=== PATIENT | female | born 1955 | race Caucasian/White ===

== ENCOUNTER 2019-10-18 00:51 | Emergency (ER) | payer OTHER, MEDICAID ==
[~2019-10-18] VITALS: Ht 152.4 cm; Wt 130.9 kg
[2019-10-18 01:02] VITALS: BP 147/64
--- NOTE | 2019-10-18 01:45 | RAD ---
Right hip 2 views with one view pelvis. HISTORY: Pelvic and right hip pain after a fall. Supine views were taken of the pelvis. There is no acute pelvic fracture. Left hip appears unremarkable. AP and lateral views were taken of the right hip. There is no fracture or acute osseous abnormality. IMPRESSION: 1. No pelvic fracture noted. 2. No right hip fracture noted. Electronically signed by: Cricket Ribeiro MD (10/18/2019 1:43 AM) [id number]
--- NOTE | 2019-10-18 01:47 | PHYS DOC ---
Past History Past Medical History: Arthritis, CAD, CHF, COPD, Diabetes, High Cholesterol, Pneumonia Additional Past Medical Histor: heart palpitations, Past Surgical History: Cholecystectomy, Hysterectomy Additional Past Surgical Histo: stents x5, gastric sleeve Alcohol Use: None Adult General Chief Complaint Chief Complaint: MECHANICAL FALL HPI HPI Patient is a [age] year old [sex] who presents with [] Review of Systems Review of Systems Constitutional: Denies fever or chills Eyes: Denies redness or eye pain HENT: Denies nasal congestion or sore throat Respiratory: Denies cough or shortness of breath Cardiovascular: Denies chest pain or palpitations GI: Denies abdominal pain, nausea, or vomiting : Denies dysuria or hematuria Musculoskeletal: Denies back pain or joint pain Integument: Denies rash or skin lesions Neurologic: Denies headache, focal weakness or sensory changes Complete systems were reviewed and found to be within normal limits, except as documented in this note. Physical Exam Physical Exam Constitutional: Well developed, well nourished, no acute distress, non-toxic appearance HENT: Normocephalic, atraumatic, oropharynx moist Eyes: PERRL, EOMI, conjunctiva normal, no discharge Neck: Normal range of motion, no tenderness, supple Cardiovascular: Heart rate normal, regular rhythm Lungs & Thorax: Bilateral breath sounds clear to auscultation, no wheezing Abdomen: Soft, no tenderness Skin: Warm, dry, no erythema, no rash Back: No tenderness, no CVA tenderness Extremities: No tenderness, ROM intact, no edema Neurologic: Alert and oriented X 3, normal motor function, normal sensory function, no focal deficits noted Psychologic: Affect normal, judgment normal Current Patient Data Vital Signs Vital Signs Date Time Temp Pulse Resp B/P (MAP) Pulse Ox O2 Delivery O2 Flow Rate FiO2 10/18/19 01:02 97.6 66 18 147/64 (91) 99 Room Air EKG EKG [] Radiology/Procedures Radiology/Procedures [] Course & Med Decision Making Course & Med Decision Making Pertinent Labs and Imaging studies reviewed. (See chart for details) Patient stable for discharge with outpatient follow-up with PCP. Discussed findings and plan with patient and family, who acknowledge understanding and agreement. Dragon Disclaimer Dragon Disclaimer This electronic medical record was generated, in whole or in part, using a voice recognition dictation system. Departure Departure: Impression: Primary Impression: Fall Additional Impressions: Right wrist sprain Hip pain, right Disposition: 01 HOME, SELF-CARE Condition: STABLE Referrals: NON,STAFF (PCP) FAVIAN HILL MD Patient Instructions: Fall Prevention and Home Safety, [id number], Hip Pain, Wrist Pain, [id number], Wrist Splint, [id number] Additional Instructions: ICE area 20 min on and then leave off for next 20 min as needed for the next few days. Use over the counter Tylenol or Ibuprofen for pain. May take previously prescribed pain medications as needed. DO NOT take extra Tylenol with the Nor co- it has Tylenol in it already. Problem Qualifiers Primary Impression: Fall Encounter type: initial encounter Qualified Codes: W19.XXXA - Unspecified fall, initial encounter Additional Impressions: Right wrist sprain Encounter type: initial encounter Qualified Codes: S63.501A - Unspecified sprain of right wrist, initial encounter JAMEY PRIETO DO Oct 18, 2019 01:47
--- NOTE | 2019-10-18 01:48 | RAD ---
Right wrist 3 views. HISTORY: Pain after a fall. 3 views were taken of the right wrist. There is mild arthritis at the first carpal metacarpal joint. There is mild arthritis with joint space narrowing between the navicular and trapezium. The radius and ulna are superimposed on the lateral view. A subtle nondisplaced radial fracture is possible in the lateral view. Minimally oblique lateral images could be of benefit for better evaluation. A fracture is not definitively identified on the AP and oblique images. IMPRESSION: 1. Arthritis right wrist. 2. No definite wrist fracture but dorsal cortex of the distal radius not well seen on the lateral view. Electronically signed by: Cricket Ribeiro MD (10/18/2019 1:45 AM) [id number]
== END 2019-10-18 01:50 | disposition home or self-care (01) ==
LOC: ER 00:51
DX: S63.501A Unspecified sprain of right wrist, initial encounter (principal); M25.551 Pain in right hip; M19.90 Unspecified osteoarthritis, unspecified site; I25.10 Atherosclerotic heart disease of native coronary artery without angina pectoris; I50.9 Heart failure, unspecified; J44.9 Chronic obstructive pulmonary disease, unspecified; E11.9 Type 2 diabetes mellitus without complications; E78.00 Pure hypercholesterolemia, unspecified; W18.39XA Other fall on same level, initial encounter; Y93.89 Activity, other specified; Y92.89 Other specified places as the place of occurrence of the external cause; Y99.8 Other external cause status
CPT/HCPCS: 73110; 73502; 99284

== ENCOUNTER 2022-01-03 10:09 | Emergency (ER) | payer OTHER, MEDICAID ==
[~2022-01-03] VITALS: Ht 152.4 cm; Wt 130.9 kg
[2022-01-03 10:09] VITALS: BP 163/87
[2022-01-03] MEDS ORDERED: PRED-220 PO (10:35)
--- NOTE | 2022-01-03 10:35 | PHYS DOC ---
Past History Past Medical History: Arthritis, CAD, CHF, COPD, Diabetes, High Cholesterol, Pneumonia Additional Past Medical Histor: heart palpitations Past Surgical History: Cholecystectomy, Hysterectomy Additional Past Surgical Histo: stents x5, gastric sleeve Smoking: Non-smoker Alcohol Use: None Drug Use: None Adult General Chief Complaint Chief Complaint: SKIN RASH/ABSCESS HPI HPI Patient is a 66 year old female who presents with complaint of rash. She states that her symptoms started last night. She states that she has had similar symptoms when exposed to poison benja. She believes that she was exposed to poison benja yesterday at a family member's house. Notes that the rash started on both arms and has since spread to her chest and back. States that she has had history of severe allergic reaction to poison benja resulting in swelling around her eyes. Denies throat swelling or shortness of breath. She came to the emergency department requesting treatment to avoid developing more severe symptoms. Denies vomiting, fever, abdominal pain, chest pain, or diarrhea. Review of Systems Review of Systems Constitutional: Denies fever or chills [] Eyes: Denies change in visual acuity, redness, or eye pain [] HENT: Denies nasal congestion or sore throat [] Respiratory: Denies cough or shortness of breath [] Cardiovascular: Denies chest pain or edema [] GI: Denies abdominal pain, nausea, vomiting, bloody stools or diarrhea [] : Denies dysuria or hematuria [] Musculoskeletal: Denies back pain or joint pain [] Integument: Rash [] Neurologic: Denies headache, focal weakness or sensory changes [] All other systems were reviewed and found to be within normal limits, except as documented in this note. Allergies Allergies Allergies Coded Allergies Type Severity Reaction Last Updated Verified lemon Allergy Unknown 01/03/22 Yes Physical Exam Physical Exam Constitutional: Alert, afebrile, no acute distress. [] HENT: Normocephalic, atraumatic, bilateral external ears normal, oropharynx moist, no oral exudates, nose normal. [] Eyes: PERRLA, EOMI, conjunctiva normal, no discharge. [] Neck: Normal range of motion, no tenderness, supple, no stridor. [] Cardiovascular:Heart rate regular rhythm, no murmur [] Lungs & Thorax: Bilateral breath sounds clear to auscultation [] Abdomen: Bowel sounds normal, soft, no tenderness, no masses, no pulsatile masses. [] Skin: Warm, dry, diffuse maculopapular rash present on bilateral hands, extensor surfaces of forearms and posterior aspect of upper arms, trunk, and back. No facial involvement at this time. [] Back: No tenderness, no CVA tenderness. [] Extremities: No tenderness, no cyanosis, no clubbing, ROM intact, no edema. [] Neurologic: Alert and oriented X 3, normal motor function, normal sensory function, no focal deficits noted. [] Current Patient Data Vital Signs Vital Signs Date Time Temp Pulse Resp B/P (MAP) Pulse Ox O2 Delivery O2 Flow Rate FiO2 01/03/22 10:09 97.9 58 163/87 (112) 98 01/03/22 10:09 16 Room Air Lab Results Not performed EKG EKG Not performed Radiology/Procedures Radiology/Procedures Not performed [] Heart Score C/O Chest Pain: No Risk Factors: Risk Factors: DM, Current or recent (<one month) smoker, HTN, HLP, family history of CAD, obesity. Risk Scores: Risk Factors: DM, Current or recent (<one month) smoker, HTN, HLP, family history of CAD, obesity. Course & Med Decision Making Course & Med Decision Making Pertinent Labs and Imaging studies reviewed. (See chart for details) Patient ministered IM Solu-Medrol in the emergency department. Will continue on 5-day course of oral prednisone for outpatient treatment. Advise follow-up in 3 to 5 days with primary care provider for reevaluation if symptoms or not improving and return to the emergency department for any worsening symptoms. Patient voiced understanding and in agreement with treatment plan. [] Dragon Disclaimer Dragon Disclaimer This electronic medical record was generated, in whole or in part, using a voice recognition dictation system. Departure Departure: Impression: Primary Impression: Contact dermatitis Disposition: HOME / SELF CARE / HOMELESS Condition: STABLE Referrals: DILMA CAPPS (PCP) Patient Instructions: Contact Dermatitis Additional Instructions: Follow-up with Dr. Capps in 2 to 3 days for reevaluation if symptoms or not improving. Return to the emergency department for any worsening symptoms. Scripts Prednisone (PREDNISONE) 10 Mg Tablet 50 MG PO DAILY for 5 Days, #25 TAB Prov: RITA DOZIER MD 01/03/22 Problem Qualifiers Primary Impression: Contact dermatitis Contact dermatitis type: unspecified Contact dermatitis trigger: non-food plants Qualified Codes: L25.5 - Unspecified contact dermatitis due to plants, except food RITA DOZIER MD January 03, 2022 10:35
[2022-01-03] MEDS ORDERED: methylPREDNISolone SOD SUCC PF 125 MG/2 ML VIAL. IM ONE (10:45)
== END 2022-01-03 10:51 | disposition home or self-care (01) ==
LOC: ER 10:09
DX: L25.5 Unspecified contact dermatitis due to plants, except food (principal); M19.90 Unspecified osteoarthritis, unspecified site; I25.10 Atherosclerotic heart disease of native coronary artery without angina pectoris; I50.9 Heart failure, unspecified; J44.9 Chronic obstructive pulmonary disease, unspecified; E11.9 Type 2 diabetes mellitus without complications; E78.00 Pure hypercholesterolemia, unspecified; Z91.018 Allergy to other foods
CPT/HCPCS: 96372; 99283; J2930